=== PATIENT | male | born 1970 ===

== ENCOUNTER 2017-08-17 07:25 | Day surgery (SDC) | payer BC ==
[2017-08-10 08:38] VITALS: BMI 44.6
[2017-08-17] MEDS ORDERED: Bupivacaine-Epi 0.25%-1:200,000 PF Inj ONE (11:18)
[2017-08-17] MEDS ORDERED: Lidocaine 1% Inj (20ml) ONE (11:18)
[2017-08-17] MEDS ORDERED: ceFAZolin IV 2 gm in Dextrose 1 GM/50 ML BAG IVPB ONE (11:18)
[2017-08-17] MEDS ORDERED: Lactated Ringer's 1,000 ML IV ONE ×2 (12:28→12:35)
[2017-08-17] MEDS ORDERED: Propofol 10 mg/ml Inj (20 ML) ONE (12:29)
[2017-08-17] MEDS ORDERED: Rocuronium 10 mg/ml (5 ml) ONE ×2 (12:29→13:30)
[2017-08-17] MEDS ORDERED: Midazolam 2 MG/2 ML VIAL ONE (12:33)
[2017-08-17] MEDS ORDERED: Morphine 4 MG/ML VIAL ONE (13:52)
[2017-08-17] MEDS ORDERED: Bupivacaine HCl 0.5% PF (10 ml) Inj ONE ×16 (14:42)
[2017-08-17] MEDS ORDERED: Neostigmine Methylsulfate 3mg/3ml Syringe IV ONE (14:48)
--- NOTE | 2017-08-17 15:37 | PCM.SURG1 ---
Surgeon's Initial Post Op Note - Surgeon's Notes Surgeon: Dr. Yost Presto Log Operator: Dr. Ospina PGY2, Alee DOWNS Type of Anesthesia: General Endo Pre-Operative Diagnosis: umbilical hernia, abdominal lipoma Operative Findings: see dictation Post-Operative Diagnosis: same Operation Performed: Robotic umbilical hernia repair, lipoma excision Specimen/Specimens Removed: umbilical hernia and sac Estimated Blood Loss: EBL {In ML}: 50 Blood Products Given: N/A Drains Used: No Drains Post-Op Condition: Good Date of Surgery/Procedure: 08/17/17 Time of Surgery/Procedure: 12:30
[2017-08-17] MEDS ORDERED: HYDROmorphone 0.5 mg/0.5 ml ISec IVP PRN (15:40)
--- NOTE | 2017-08-17 15:44 | PCM.ANESB5 ---
Transverse Abdominis Block - Transverse Abdominis Plane Date of Procedure: 08/17/17 Anesthesiologist: Lopez Pre-Procedure Diagnosis: S/p Robotic Assisted Umbilical Hernia Repair Post-Procedure Diagnosis: Same Procedure Performed: Transverse Abdominis Plane Nerve Block Left, Transverse Abdominis Plane Nerve Block Right - Procedure Transverse Abdominis Plane Nerve Block: The procedure was explained to the patient that it is for post-operative pain management and would be performed after surgery. Consent was obtained prior to surgery after a thorough discussion with the patient regarding the benefits and possible complications of transverse abdominis plane block. After the surgery had concluded and before the patient emerged from general anesthesia, time-out was held with the circulating nurse to re-confirm the appropriate block. With the patient in supine position, the ultrasound probe was placed transverse to the abdominal wall at the mid-axillary line above the iliac crest of the appropriate side. The skin, subcutaneous tissue, fat, external oblique muscle, internal oblique muscle, and the transverse abdominis muscle were identified. The general area of the block site was then prepped with chrolaprep. At this point, a # 21-gauge Stimuplex 4-inch needle was inserted posterior to and in plane with the ultrasound probe and directed anteriorly. Needle was advanced under direct ultrasound visualization until it reached the plane between the internal oblique and transverse abdominis muscles. After appropriate placement, 2mL of local anesthetic solution was injected. When the transverse abdominis plane was observed expanding in an ellipsoid way, the rest of the solution was slowly injected. A total of 20 mL of 0.5% Bupivacaine was used for this block. The needle was then removed and sterile dressing was applied. Similarly, the same procedure was performed on the other side using the same medications. The patient had stable vital signs throughout and had no untoward complications after emergence from general anesthesia in the recovery room.
[2017-08-17] MEDS ORDERED: Acetaminophen IV 1,000 MG in Premixed IV 1 EA IV ONE (16:00)
[2017-08-17 18:19] VITALS: BP 126/60; PULSE 63; RESP 18; TEMP 97; O2SAT 96
--- NOTE | 2017-08-20 05:32 | OP ---
PROCEDURE DATE: 08/17/2017 PREOPERATIVE DIAGNOSES: 1. Umbilical hernia. 2. Morbid obesity. 3. Large lipoma of the left lower quadrant of abdominal wall approximately 15 x 10 cm size. PROCEDURES DONE: 1. Robotic umbilical hernia repair with a mesh. 2. Excision of the lipoma of the abdominal wall 15 x 10 cm size. 3. Complex-layered closure of the wound approximately 8 x 4 cm size. SURGEON: Marcus Yost MD [employer]: CARROLL Troncoso TYPE OF ANESTHESIA: General endotracheal tube anesthesia. ESTIMATED BLOOD LOSS: Around 50 mL for both procedures together. COMPLICATIONS: None. INTRAOPERATIVE FINDINGS: The patient had morbid obesity with extensive preperitoneal fat and umbilical hernia of approximately 3 x 3 cm size defect and large amount of preperitoneal fat was herniated. The patient also had a large lipoma of the left lower quadrant approximately 15 x 10 cm size. DESCRIPTION OF PROCEDURE: On intraoperative steps, this 47-year-old male was diagnosed with umbilical hernia as well as large lipoma of the left lower abdominal wall and the patient was consented for robotic umbilical hernia with a mesh as well as excision of the lipoma of the left lower quadrant abdominal wall and the patient was brought to the OR, placed supine on the operating table. After induction of the anesthesia, abdomen was prepped and draped in the usual sterile fashion. Using the Visiport technique, the 5 mm incision was made and peritoneal cavity was entered. Pneumo was created. The three 8 mm robotic camera ports were placed in the Right flank, right upper quadrant, and right lower quadrant. Robot was brought in. Camera arm as well as arm #1 and arm #2 were docked, and the patient had an extensive preperitoneal fat that was dissected and umbilical hernia was reduced back into the peritoneal cavity and hernial content was sent to the table for the pathology and hernial defect was closed with a #1 Prolene V-Loc suture in 2 layers and a 9 cm mesh was implanted. After proper implantation of the mesh, all the ports were taken out under vision, pneumo was deflated, and 8 x 2 cm elliptical incision was made in the left lower quadrant on top of the lipoma. Upper and lower flap was created. Medial and lateral dissection was done. Dissection was carried down up to the underlying external oblique aponeurosis and the lipoma was completely excised and it was sent off the table for the pathology. There was proper hemostasis in each and every part of the procedure. The wound was irrigated. Now, the complex multilayer closure of the wound was done. The upper and lower flap was sutured to the underlying fascia, another layer of the subcutaneous to the underlying fascia, and the skin with Monocryl and another layer of the skin with 4-0 nylon interrupted suture and dry sterile dressing was applied. The patient tolerated the procedure well. Count of the instruments and gauze was correct. There was no apparent complication. The patient was extubated in OR, sent to the postanesthesia care unit in stable condition. Marcus Yost MD MTDD
== END 2017-08-17 18:49 | disposition home or self-care (01) ==
LOC: C.SDS 07:25
PROVIDERS: ATTEND Surgery Surgical Critical Care
DX: K42.9 Umbilical hernia without obstruction or gangrene (principal); D17.1 Benign lipomatous neoplasm of skin and subcutaneous tissue of trunk; E66.01 Morbid (severe) obesity due to excess calories; D17.5 Benign lipomatous neoplasm of intra-abdominal organs
CPT/HCPCS: 11406; 12035; 49652; 82948; J0131; J0690; J1170; J2001; J2250; J2270; J2405; J2704; J2710; J2765; J3010; J7120; S2900